=== PATIENT | male | born 1955 ===

== ENCOUNTER → 2025-01-09 | Outpatient (REF) | payer OTHER ==
[2025-01-09 18:55] LABS: CREATININE, URINE 102.1 MG/DL; TOTAL PROTEIN 24 HOUR URINE 379.6 MG/24HR (50-80); URINE TOTAL PROTEIN 10.4 MG/DL (0-14)
== END ==
LOC: M LAB REF 17:22
PROVIDERS: ATTEND Internal Medicine Nephrology
DX: N18.31 Chronic kidney disease, stage 3a (principal)